=== PATIENT | female | born 1985 | race Caucasian/White ===

== ENCOUNTER 2025-06-13 15:20 | Emergency (ER) | payer MEDICARE, OTHER, SELFPAY ==
[2025-06-13 15:23] VITALS: BP 120/79; PULSE 81; RESP 14; TEMP 36.5; O2SAT 97
--- NOTE | 2025-06-13 15:30 | DI.RAD_ITS ---
Exam(s) XR KNEE RT 3V AP,LAT,DARIUSZ EXAM: XR KNEE RT 3V AP,LAT,DARIUSZ CLINICAL HISTORY: knee dislocation, self reduced, hx of Ehler Danlos. TECHNIQUE: 2D digital imaging was performed. Three views. COMPARISON: No exams were available for comparison FINDINGS: BONES: No acute fracture is present. No bony destructive lesion is seen. JOINTS: The knee is normally aligned. No joint effusion is seen. The joint spaces are maintained. SOFT TISSUE: Normal. IMPRESSION: Unremarkable radiographs of the right knee. DATA REPOSITORY: RADIATION DOSE DELIVERED:
--- NOTE | 2025-06-13 15:42 | W.ED.GENAD ---
Discharge Plan Disposition Patient Disposition: Home Condition: Improving Discharge Details Clinical Impression: Acute knee pain ED Provider: Jagjit Pritchett Home Meds and New Rx's Prescriptions: No Action pyridostigmine bromide [Mestinon] 60 mg tablet 60 mg PO TID montelukast [Singulair] 1 tab PO DAILY fludrocortisone 0.1 mg tablet 0.1 mg PO DAILY Discharge Instructions Instructions: Knee Pain ED Additional Instructions: Please continue with anti-inflammatory therapy ice elevation, rest, and follow-up closely with orthopedic team. Please return to the emergency department for any worsening symptoms HPI General Date/Time Provider Initiated Documentation: 06/13/25 15:24. 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, presents after dislocating her knee earlier today, felt as if her fibular region moved laterally patient was able to self reduce per history, patient has had multiple episodes in the past of similar dislocations, today she was getting up from a seated position when this happened, patient endorses return to full range of motion however still with some persistent discomfort and inability to bear full weight, no other injuries Related Data Home Medications ?Medication ?Instructions ?Recorded ?Confirmed fludrocortisone 0.1 mg tablet 0.1 mg PO DAILY 06/13/25 06/13/25 montelukast 1 tab PO DAILY 06/13/25 06/13/25 pyridostigmine bromide 60 mg 60 mg PO TID 06/13/25 06/13/25 tablet (Mestinon) Allergies Allergy/AdvReac Type Severity Reaction Status Date / Time acetaminophen (From Percocet) AdvReac Intermediate Other (See Verified 06/13/25 15:29 Comment) ibuprofen AdvReac Intermediate Other (See Verified 06/13/25 15:29 Comment) oxycodone (From Percocet) AdvReac Intermediate Other (See Verified 06/13/25 15:29 Comment) General Stated Complaint: Orthopedic TROY: 4 Exam Narrative Exam Narrative: General: alert, no acute distress HEENT: normocephalic, atraumatic, neck supple, pupils equal round reactive to light, moist mucous membranes, tolerating secretions, normal voice, no rhinorrhea or otorrhea Respiratory: normal respiratory effort, lungs clear bilaterally, no wheezes rales or rhonchi Cardiac: regular rate and rhythm, no murmurs rubs or gallops; equal pulses bilaterally, warm well perfused Abdominal: soft, nontender, nondistended; no organomegaly or palpable masses MSK: Right lower extremity: Full range of motion of knee flexion and extension, no effusion, no laxity, no crepitus, negative anterior drawer, no abrasions ecchymosis or lacerations noted, warm well-perfused extremity DP pulse intact, no malleoli tenderness no calcaneal tenderness, full plantarflexion and dorsiflexion of foot, full range of motion of toes, good capillary refill, soft compartments no hip deformity Skin: warm, dry, no rashes or lesions Neuro: AAOx3, CN II-XII intact, 5/5 strength bilateral upper and lower extremities, normal speech, no ataxia Psych: normal mood, normal affect, calm, cooperative Course Vital Signs Vital signs: Vital Signs Temperature 36.5 C 06/13/25 15:23 Pulse 81 06/13/25 15:23 Respiratory Rate 14 06/13/25 15:23 Blood Pressure 120/79 06/13/25 15:23 Pulse Oximetry 97 06/13/25 15:23 Temperature 36.5 C 06/13/25 15:23 Temperature Source Oral 06/13/25 15:23 Pulse 81 06/13/25 15:23 Respiratory Rate 14 06/13/25 15:23 Blood Pressure 120/79 06/13/25 15:23 Blood Pressure Position Sitting 06/13/25 15:23 Pulse Oximetry 97 06/13/25 15:23 Oxygen Delivery Method Room Air 06/13/25 15:23 Oxygen Flow Rate 0 06/13/25 15:23 Medical Decision Making 39-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 presents after reportedly dislocating knee when getting up from a seated position to a standing position this morning, has been icing and resting the knee, full range of motion intact neurovascular exam of limb intact, patient unable to bear weight due to discomfort, no laxity no point discomfort, no effusion no deformity, consider likely soft tissue strain versus sprain lower suspicion for fracture or active dislocation, per history and physical examination no evidence of posterior knee dislocation, patient has no external signs of trauma, hemodynamically stable afebrile nontoxic, patient took tramadol and Toradol earlier today, will provide acetaminophen and cyclobenzaprine will place in knee immobilizer will provide crutches training, will also provide orthopedic follow-up as needed. Disposition pending screening x-ray results. 16: 48 patient resting, no acute distress, x-ray read as unremarkable, given patient does have persistent discomfort in the tibial plateau region have ordered CT lower extremity to assess for occult tibial plateau fracture. Remains neurovascularly intact, soft compartments warm well-perfused sensate limb. No evidence of neurovascular compromise or compartment syndrome. 17: 23 resting comfortably no acute distress. Neurovascular exam intact. CT unremarkable for tibial plateau fracture. Patient placed in knee immobilizer and given crutches. Will also be given orthopedic follow-up. Home care instructions and return precautions given PFS All Active Problems (Updated 06/13/25 @ 17:24 by Jagjit Pritchett MD) Acute knee pain (Acute) Social History Smoking/Tobacco Use Status: Never Smoking risk assessment performed?: Yes Alcohol Intake: never Drug use: Never Substance use type: does not use Do you feel safe at home: Yes Do you feel safe in your relationship?: Yes
[2025-06-13] MEDS: Cyclobenzaprine 10 MG TAB PO (15:47)
[2025-06-13] MEDS: Acetaminophen 325 MG TAB 650 MG PO (15:47)
--- NOTE | 2025-06-13 16:30 | DI.CT_ITS ---
Exam(s) CT LOWER EXTREMITY RT WO EXAM: CT LOWER EXTREMITY RT WO CLINICAL HISTORY: right knee pain post dislocation, hx Erhlos-Danlos. TECHNIQUE: Imaging Protocol: Axial computed tomography images with coronal and sagittal reformatted images were created and reviewed. CONTRAST MATERIAL: Noncontrast COMPARISON: CR XR KNEE RT 3V AP,LAT,DARIUSZ from 06/13/2025 FINDINGS: Bones: There is no evidence of fracture or dislocation. No osteomyelitic changes are identified. No lytic or sclerotic lesions are identified. Joints: There is no significant joint space narrowing. No significant periarticular spurring. Soft Tissues: Normal. IMPRESSION: No acute abnormality of the right knee. RADIATION DOSE DELIVERED: Total DLP DATA REPOSITORY: All CT scans at this facility are submitted to the National Radiology Data Registry (NRDR) Dose Index Registry (DIR) with the [employer] ([employer]). RADIATION OPTIMIZATION: All CT scans at this facility use at least one of these dose optimization techniques: automated exposure control; mA and/or kV adjustment per patient size (includes targeted exams where dose is matched to clinical indication); or iterative reconstruction.
[2025-06-13 17:59] VITALS: BP 92/68; PULSE 71; RESP 16; O2SAT 96
--- NOTE | 2025-06-30 11:44 | NUR.NOTE ---
Access chart to print the provider note and the radiology reports to fax to [facility] for billing purposes. Nursing Note:
== END 2025-06-13 17:58 | disposition home or self-care (01) ==
PROVIDERS: Emergency Provider Emergency Medicine
DX: M25.561 Pain in right knee (principal); Q79.60 Ehlers-Danlos syndrome, unspecified
CPT/HCPCS: 73562; 99284; 73700